=== PATIENT | male | born 1990 | race Hispanic/Latino ===

== ENCOUNTER 2024-06-14 15:49 | Emergency (ER) | payer OTHER ==
[~2024-06-14] VITALS: Ht 165.1 cm; Wt 65.8 kg
--- NOTE | 2024-06-14 16:06 | ERN ---
ED Note History of Present Illness Stated Complaint: ALLERGIC REACTION Chief Complaint: Allergic Reaction Time Seen by MD: 15:51 Dictation: PATIENT IS A 33-YEAR-OLD MALE COMING IN FROM A LOCAL CORRECTION WITH COMPLAINTS OF ACUTE ONSET OF LEFT LATERAL FACIAL AND MANDIBULAR SWELLING ONSET THREE HOURS PRIOR TO ARRIVAL. HE STATES HE WAS DOING FINE, THEN NOTICED HE WAS HAVING THE SWELLING AND TENDERNESS TO THE LEFT SIDE OF HIS FACE. PATIENT WAS TREATED AN ACUTE ALLERGIC REACTION WITH BENADRYL AND MEDICATIONS HOWEVER BILATERAL BREATH SOUNDS ARE CLEAR THERE IS NO RASH AND THE SWELLING IS UNILATERAL. VOICE IS CLEAR. STATES HE HAS BEEN HAVING TROUBLE SWALLOWING FOR TWO DAYS. Allergies: Coded Allergies: No Known Allergies (Unverified Allergy, Unknown, 06/14/24) Past Medical History Past Medical History: No Pertinent History Surgical History: None RN Note Reviewed/Agreed w/PFSH: Yes Review of System Dictation CONSTITUTIONAL: NEGATIVE EXCEPT FOR HPI HEAD/FACE: NEGATIVE EXCEPT FOR HPI EENT: NEGATIVE EXCEPT FOR HPI LEFT FACIAL AND MANDIBULAR SWELLING TENDERNESS RESPIRATORY: NEGATIVE EXCEPT FOR HPI GASTROINTESTINAL/ABDOMINAL: NEGATIVE EXCEPT FOR HPI GENITOURINARY: NEGATIVE EXCEPT FOR HPI MUSCULOSKELETAL: NEGATIVE EXCEPT FOR HPI INTEGUMENTARY: NEGATIVE EXCEPT FOR HPI NEUROLOGICAL/PSYCH: NEGATIVE EXCEPT FOR HPI HEMATOLOGIC/LYMPHATIC: NEGATIVE EXCEPT FOR HPI ALL SYSTEMS NEGATIVE, EXCEPT NOTED ABOVE. 13 POINT REVIEW OF SYSTEMS ASSESSED AND ALL NEGATIVE EXCEPT FOR ABOVE. Initial Vital Sign VS Vital Signs Date Time Temp Pulse Resp B/P (MAP) Pulse Ox O2 Delivery O2 Flow Rate FiO2 06/14/24 15:51 98.8 84 20 126/65 98 Room Air 0 06/14/24 16:06 21 Physical Exam Dictation VITAL SIGNS REVIEWED GENERAL APPEARANCE: ALERT, ORIENTED X 3, MILD ACUTE DISTRESS, WELL DEVELOPED, NOURISHED. HEAD AND FACE: NON-TRAUMATIC. EYES: PERRL, PINK CONJUNCTIVAS, EYELID NO TRAUMA, ANTERIOR CHAMBER WITH ARCUS SENILIS. EARS: PINNAS INTACT AND NO SIGNS OF TRAUMA OR ERYTHEMA EAR CANALS CLEAR AND NO DISCHARGE TM NO ERYTHEMA NOSE: NO DISCHARGE, NO BLEEDING. OROPHARYNX: MOUTH NORMAL, TONGUE PINK, PATIENT HAS SWELLING AND TENDERNESS TO THE LEFT LATERAL FACE AND MANDIBULAR AREA. FIRM TO TOUCH. PHARYNX CLEAR,NO ERYTHEMA, TONSILS NO EXUDATES, NO ABSCESSES NOTED, MUCOUS MEMBRANE MOIST NECK: SUPPLE, NON-TENDER, NO THYROMEGALY, NO MASSES, NO JVD, NO BRUITS BREAST:DEFERRED CHEST:NO TENDERNESS, NO CREPITUS, NO PARADOXICAL MOVEMENT, NO RETRACTIONS LUNGS:CLEAR, WELL-VENTILATED, SYMMETRIC, NO RALES, NO WHEEZING, NO RHONCHI, NO STRIDOR, GOOD BREATH SOUNDS BILATERALLY HEART: REGULAR RATE, REGULAR RHYTHM, NO MURMUR, NO GALLOPS VASCULAR: NO PERIPHERAL EDEMA, ABDOMEN: SOFT, POSITIVE BOWEL SOUNDS, NONDISTENDED, NO GUARDING, NONTENDER, NO REBOUND, NO MASSES NO HEPATOMEGALY, NO SPLENOMEGALY, NO TEJEDA'S SIGN, NO HERNIAS. RECTAL: DEFERRED GENITAL: DEFERRED NEUROLOGICAL: NORMAL SPEECH, MOTOR FUNCTION INTACT, SENSORY FUNCTION INTACT MUSCULOSKELETAL: NECK NONTENDER, FULL RANGE OF MOTION, BACK NONTENDER, FULL RANGE OF MOTION, EXTREMITIES: NONTENDER, FULL RANGE OF MOTION SKIN: COLOR PINK, DRY, NO TURGOR, NO RASH, NO LACERATIONS, NO ABRASIONS, NO CONTUSIONS. LYMPHATIC: DEFERRED Results (Laboratory/Radiology) Laboratory/Radiology Laboratory Tests Test 06/14/24 16:11 06/14/24 17:23 White Blood Count 16.8 K/uL (4.8-10.8) H Red Blood Count 4.48 MIL/uL (4.50-6.20) L Hemoglobin 13.2 g/dL (14.0-18.0) L Hematocrit 39.2 % (42-54) L Mean Corpuscular Volume 87.5 fL (79-99) Mean Corpuscular Hemoglobin 29.5 pg (27.0-33.0) Mean Corpuscular Hemoglobin Concent 33.7 g/dL (32.0-36.0) Red Cell Distribution Width 12.4 % (11.0-15.5) Platelet Count 237 K/uL (130-400) Mean Platelet Volume 10.4 fL (7.5-10.5) Segmented Neutrophils % 72 % (40-70) H Band Neutrophils % 2 % (0-2) Lymphocytes % (Manual) 20 % (22-44) L Monocytes % (Manual) 6 % (2-9) Nucleated Red Blood Cells 0.0 % (0.0-0.19) Differential Comment MANUAL DIFFERENTIAL White Cell Morphology Comment CONSISTENT W/DIFF Platelet Morphology Comment ADEQUATE Red Blood Cell Morphology NORMAL Sodium Level 133 mmol/L (136-145) L Potassium Level 3.4 mmol/L (3.5-5.1) L Chloride Level 99 mmol/L (101-111) L Carbon Dioxide Level 28 mmol/L (21-32) Blood Urea Nitrogen 12 mg/dL (7-18) Creatinine 0.9 mg/dL (0.5-1.3) Glomerular Filtration Rate Calc 117 mL/min (>90) Random Glucose 176 mg/dL (70-105) H Total Calcium 9.1 mg/dL (8.5-10.1) Lactic Acid Level 1.2 mmol/L (0.8-2.5) Labs Reviewed?: Yes ED Course ED Course Orders Procedure Category Date Status Time Amox/Clav 875/125mg PHA 06/14/24 Complete Tab (Augmentin 875-1 16:00 Us Soft Tissue Neck US 06/14/24 Resulted 15:57 Cbc W Manual Diff LAB 06/14/24 Complete 15:57 Basic Metabolic Panel LAB 06/14/24 Complete 15:57 Blood Cult AYAZ 06/14/24 Logged 17:13 Lactic Acid LAB 06/14/24 Complete 17:13 0.9%Nacl 1000ml (Ns PHA 06/14/24 Complete 1000ml) 17:30 Clindamycin Ivpb PHA 06/14/24 In Process 600mg/50ml (Cleocin 17:30 Ct Neck Soft Tiss CT 06/14/24 Resulted W/Contrast 17:13 Ketorolac PHA 06/14/24 Complete Tromethamine 30mg/Ml 17:30 Iohexol (Omnipaque) PHA 06/14/24 Complete 17:38 Current Medications Medications (Trade) Dose Ordered Sig/Charmaine Route PRN Reason Start Time Stop Time Status Last Admin Dose Admin Amoxicillin/ Clavulanate Potassium (Augmentin 875-125 Tablet) 1 each ONCE ONCE PO 06/14/24 16:00 06/14/24 17:16 DC 06/14/24 16:11 Clindamycin HCl/ Dextrose 50 ml @ 100 mls/hr Q8H IV 06/14/24 17:30 06/24/24 17:29 06/14/24 17:28 Iohexol (Omnipaque) 50 ml STK-MED ONCE IV 06/14/24 17:38 06/14/24 17:38 DC Ketorolac Tromethamine (toRADol) 30 mg ONCE ONCE IVP 06/14/24 17:30 06/14/24 17:31 DC 06/14/24 17:28 Sodium Chloride 1,000 ml @ 0 mls/hr ONCE ONCE IV 06/14/24 17:30 06/14/24 17:31 DC 06/14/24 17:28 Vital Signs Date Time Temp Pulse Resp B/P (MAP) Pulse Ox O2 Delivery O2 Flow Rate FiO2 06/14/24 17:57 99.0 98 18 121/58 98 Room Air* 0 21 06/14/24 16:09 99.9 104 20 124/62 98 Room Air* 0 21 06/14/24 16:06 98.1 90 18 131/71 96 Room Air* 0 21 06/14/24 15:51 98.8 84 20 126/65 98 Room Air 0 TIBIA/FIBULA 2VWS LT HISTORY: Status post fall COMPARISON: None TECHNIQUE: 2 images of left tibia and fibula were obtained. FINDINGS: There is no acute displaced fracture or dislocation. No evidence of radiopaque foreign body is seen. Nonradiopaque foreign body cannot be excluded. IMPRESSION: 1. Findings as described above. 825 PATIENT DISCHARGED HOME WITH DIAGNOSIS OF SIALADENITIS. HE WAS GIVEN FLUIDS AND CLINDAMYCIN HERE, WE WILL BE DISCHARGED HOME WITH AUGMENTIN AND TOLD TO SEE HIS PRIMARY CARE DOCTOR IN THE NEXT 2-3 DAYS Medical Decision Making MDM MDM: DIFFERENTIAL DIAGNOSIS: PAROTITIS VERSUS SIALADENITIS VERSUS ABSCESS/LYMPHADENOPATHY RATIONALE: TESTS CONSIDERED AND ORDERED SECONDARY TO SHARED DECISION MAKING INCLUDE: LABS/ULTRASOUND/RADIOLOGY PREVIOUS OUTSIDE RECORDS REVIEWED: OLD ER VISITS. RISK OF COMPLICATION AND/OR MORBIDITY OR MORTALITY OF PATIENT MANAGEMENT: MILD MEDICATIONS-PER MEDICATION RECONCILIATION NEED FOR HOSPITALIZATION: PATIENT DOES NOT MEET CRITERIA FOR HOSPITALIZATION. NO NEED FOR EMERGENCY MAJOR/MINOR SURGERY: NO THERE ARE NO SOCIAL CONCERNS WITH THIS PATIENT. PATIENT INCARCERATION PRESCRIPTION DRUG MANAGEMENT AUGMENTIN PRESCRIPTIONS WILL INCLUDE SYMPTOMATIC CARE PATIENT'S PRIOR EXTERNAL MEDICAL RECORDS FROM OTHER ER VISITS WERE REVIEWED BY ME INDICATED. PRIOR TESTING AND RESULTS FROM PREVIOUS VISITS WERE REVIEWED. PRIOR TESTS WERE TAKEN INTO ACCOUNT WITH MEDICAL DECISION MAKING AND RESOURCE UTILIZATION, INDEPENDENT HISTORIAN/HISTORIANS WERE USED TO OBTAIN COMPLETE MEDICAL HISTORY. I INDEPENDENTLY INTERPRETED THE TEST THAT WERE PERFORMED, RESULTS WERE REVIEWED BY ME AND CONSIDERED FINDINGS ON RADIOLOGY IF ORDERED. MEDICAL MANAGEMENT AND EXAMINATION INTERPRETATION DISCUSSIONS WERE HAD BY ME WITH OTHER QUALIFIED HEALTHCARE PROFESSIONALS INDICATED FOR THE PATIENT'S CARE. DX & DISP Disposition: Discharge Departure Impression: Primary Impression: Parotid sialadenitis Condition: Stable Scripts Ibuprofen (Ibuprofen 800 mg Tab) 800 Mg Tab 800 MG PO Q8H PRN for fever or pain, #30 TAB 0 Refills Prov: MAVERICK ELLINTGON NP 06/14/24 Amoxicillin/Potassium Clav (Amox Tr-K Clv 875-125 mg Tab) 875 Mg-125 Mg Tablet 1 EACH PO BID for 10 Days, #20 TAB 0 Refills Prov: MAVERICK ELLINGTON NP 06/14/24 Additional Instructions: FOLLOW-UP WITH PRIMARY CARE PROVIDER IN 1 TO 2 DAYS. TAKE MEDICATIONS DIRECTED HERE IN THE EMERGENCY ROOM. OKAY TO CONTINUE HOME MEDICATIONS UNLESS OTHERWISE DISCUSSED DURING YOUR VISIT IN THE EMERGENCY ROOM TODAY. RETURN TO YOUR NEAREST EMERGENCY ROOM IF SYMPTOMS WORSEN OR IF THERE IS NO IMPROVEMENT. CALL 911 IF YOU NEED IMMEDIATE ASSISTANCE. TAKE TYLENOL OR MOTRIN [id number] NEEDED AND IF NO CONTRAINDICATIONS ARE PRESENT. INCREASE ORAL HYDRATION. A WOUND CULTURE OR URINE CULTURE WAS ORDERED HERE IN THE EMERGENCY ROOM DEPARTMENT PLEASE FOLLOW-UP WITH PRIMARY CARE PROVIDER AND ADVISE THEM TO GET REPEAT PORTS FROM OUR FACILITY. IF YOU HAD ANY JOS WRAP/SPLINTS THAT WERE APPLIED HERE, PLEASE DO NOT REMOVE THEM UNTIL YOU SEE YOUR PRIMARY CARE OR SPECIALTY. MEDICALLY CLEARED FOR INCARCERATION AND TRAVEL. TAKE ANTIBIOTICS DIRECTED UNTIL GONE. TAKE IBUPROFEN NEEDED WITH FOOD FOR PAIN SWELLING. SEE YOUR PRIMARY CARE DOCTOR IN TWO OR THREE DAYS IF NOT IMPROVING. SUGGEST REFERRAL TO [facility] IF NOT IMPROVED. Time of Disposition: 18:27 I have reviewed the case, and I agree with, Diagnosis and Plan MAVERICK ELLINGTON NP Jun 14, 2024 16:06
[2024-06-14] MEDS: AMOX/CLAV 875/125MG TAB PO ONE ×2 (16:11→18:30)
[2024-06-14 16:16] LABS: HEMATOCRIT 39.2 % (42-54); MEAN CORPUSCULAR HEMOGLOBIN 29.5 pg (27.0-33.0); MEAN CORPUSCULAR HGB CONC 33.7 g/dL (32.0-36.0); MEAN CORPUSCULAR VOLUME 87.5 fL (79-99); PLATELET COUNT (AUTO) 237 K/uL (130-400); RED BLOOD CELL COUNT(AUTO) 4.48 MIL/uL (4.50-6.20); RED CELL DISTRIBUTION WIDTH 12.4 % (11.0-15.5); WHITE BLOOD COUNT (AUTO) 16.8 K/uL (4.8-10.8)
[2024-06-14 16:24] LABS: CREATININE 0.9 mg/dL (0.5-1.3); POTASSIUM 3.4 mmol/L (3.5-5.1)
[2024-06-14 16:34] LABS: BAND NEUTROPHILS % (MANUAL) 2 % (0-2); LYMPHOCYTES % (MANUAL) 20 % (22-44); MAN.DIFF COMMENT-IMPRESSION MANUAL DIFFERENTIAL; MONOCYTES % (MANUAL) 6 % (2-9); PLATELET MORPHOLOGY COMMENT ADEQUATE; SEGMENTED NEUTROPHILS % 72 % (40-70); TOTAL CELLS COUNTED 100; WBC MORPHOLOGY CONSISTENT W/DIFF
--- NOTE | 2024-06-14 17:07 | HMCIMG ---
US SOFT TISSUE NECK REASON: LEFT SUBMANDIBULAR SWELLING TENDERNESS. RULE OUT PAROTID. COMPARISON: None TECHNIQUE: Left parotid gland ultrasound study was performed. FINDINGS: Complex structure with increased vascularity is seen within the left parotid gland measuring 3.8 x 2.6 x 1.4 cm may be related to abscess. There are left cervical lymph nodes with the largest measuring 12 x 5 x 13 mm. IMPRESSION: Complex structure with increased vascularity is seen within the left parotid gland measuring 3.8 x 2.6 x 1.4 cm may be related to abscess. There are left cervical lymph nodes with the largest measuring 12 x 5 x 13 mm.
[2024-06-14] MEDS: ketOROlac 30MG VIAL (30MG/ML) IVP ONE (17:28)
[2024-06-14] MEDS: 0.9%NACL 1000ML 1,000 ML IV ONE (17:28)
[2024-06-14] MEDS: CLINDAMYCIN IVPB 600MG/50ML 50 ML IV SCH (17:28)
[2024-06-14] MEDS ORDERED: IOHEXOL-350 50ML VIAL IV ONE (17:38)
--- NOTE | 2024-06-14 18:08 | HMCIMG ---
CT NECK SOFT TISS W/CONTRAST HISTORY: Possible parotid abscess COMPARISON: Ultrasound from the same day TECHNIQUE: Multiple sequential axial images of the soft tissue neck were obtained. Patient was given 50 cc of Omnipaque through intravenous route. FINDINGS: Visualized portion of brain parenchyma within the posterior fossa is within normal limits. Parapharyngeal fat planes are preserved bilaterally. Right parotid gland and right submandibular gland are within normal limits. There is complex structure measuring 3.1 x 3.3 cm near the angle of left mandible with adjacent enlargement of the left submandibular gland and left parotid gland suspicious for inflammatory process versus infectious process with other possibilities not excluded. There may be fluid collection within it with abscess versus necrotic mass not excluded. Adjacent soft tissue swelling is seen. There is mild cervical adenopathy. There are borderline enlarged cervical lymph nodes. The airway is patent. Visualized portion of the lung apices are unremarkable. IMPRESSION: 1. There is complex structure measuring 3.1 x 3.3 cm near the angle of left mandible with adjacent enlargement of the left submandibular gland and left parotid gland suspicious for inflammatory process versus infectious process with other possibilities not excluded. There may be fluid collection within it with abscess versus necrotic mass not excluded. Adjacent soft tissue swelling is seen. There is mild cervical adenopathy. CT was performed with one or more following dose reduction techniques: automated exposure control, adjustment of the mA and kv according to patient's size, or use of a iterative reconstruction technique.
[2024-06-14] MEDS ORDERED: AMOX1TAB16 PO (18:28)
[2024-06-14] MEDS ORDERED: IBUP-2077 PO (18:28)
[2024-06-14 18:35] VITALS: BP 124/58; PULSE 97; RESP 20; TEMP 98.9; O2SAT 98
== END 2024-06-14 18:36 ==
LOC: EDH 15:49 → EEVIPCON 15:49 → EDH 18:36
DX: K11.20 Sialoadenitis, unspecified (principal)
CPT/HCPCS: 99285; 96365; 70491; 96375; 80048; 85025; 87040 ×2; 83605; 36415; 76536; J1885; J7030; J3490; Q9967